=== PATIENT | female | born 1980 | race Two or more races ===

== ENCOUNTER 2021-11-21 19:23 | Emergency (ER) | payer OTHER ==
[2021-11-21 19:49] VITALS: BP 123/82; PULSE 100; TEMP 98.2; BMI 24.6
[2021-11-21] MEDS ORDERED: SODIUM CHLORIDE 0.9% 500 ML INFUS.BAG IV ONE (20:33)
[2021-11-21 21:27] LABS: BASO % 0.3 % (0-2.0); EOS % 2.5 % (0-4.5); HEMATOCRIT 40.2 % (32.4-45.2); HEMOGLOBIN 13.1 GM/dL (10.7-15.3); MCH 24.7 pg (25.7-33.7); MCHC 32.6 g/dl (32.0-36.0); MEAN CELL VOLUME 75.7 fl (80-96); MEAN PLT VOLUME 9.2 fl (7.5-11.1); NEUT % 57.2 % (42.8-82.8); PLATELET COUNT 243 10^3/uL (134-434); RBC 5.31 M/mm3 (3.60-5.2); RDW 13.2 % (11.6-15.6); WHITE BLOOD COUNT 5.8 K/mm3 (4.0-10.0)
[2021-11-21 21:39] LABS: EPI CELLS 25 /uL (0-25.1); HYALINE CASTS 0 /uL (0-3.1); URINE APPEARANCE CLEAR; URINE BACTERIA 114 /uL (0-1359); URINE BILIRUBIN NEGATIVE (NEGATIVE); URINE COLOR YELLOW; URINE GLUCOSE (UA) 3+ (NEGATIVE); URINE KETONE 3+ (NEGATIVE); URINE LEUK ESTERASE NEGATIVE (NEGATIVE); URINE NITRITE NEGATIVE (NEGATIVE); URINE PROTEIN NEGATIVE (NEGATIVE); URINE RBC 14 /uL (0-23.9); URINE UROBILINOGEN 0.2 mg/dL (0.2-1.0); URINE WBC 20 /uL (0-25.8)
[2021-11-21 21:53] LABS: CALCIUM 9.2 mg/dL (8.5-10.1)
[2021-11-21 21:54] LABS: ALBUMIN 3.9 g/dl (3.4-5.0); BLOOD UREA NITROGEN 8.6 mg/dL (7-18)
[2021-11-21 21:57] LABS: CREATININE 0.6 mg/dL (0.55-1.3)
[2021-11-21 21:59] LABS: BILIRUBIN,TOTAL 0.6 mg/dL (0.2-1); TOT PROT 7.6 g/dl (6.4-8.2)
== END 2021-11-22 00:39 | disposition home or self-care (01) ==
LOC: JER 19:23
DX: R73.9 Hyperglycemia, unspecified (principal)
CPT/HCPCS: 36415; 80053; 81003; 82010; 82962; 84132; 84703; 85025; 87077; 87086; 99283-25